=== PATIENT | female | born 1985 | race Caucasian/White ===

== ENCOUNTER 2016-08-14 14:21 | Emergency (ER) | payer OTHER ==
[~2016-08-14] VITALS: Ht 167.6 cm; Wt 72.0 kg
[~2016-08-14 14:21] MED LIST: IBUP400T20 PO; NAPR-576 PO; PERM5CRE TOP; PROC1TAB8 PO; TRIA.1%T TOP
[2016-08-14] MEDS ORDERED: ORPHENADRINE INJ 60 MG/2 ML AMP IM ONE (15:15)
[2016-08-14] MEDS ORDERED: KETOROLAC TROMETHAMINE 60 MG/2 ML (IM) VIAL IM ONE (15:15)
[2016-08-14 15:16] VITALS: BP 141/84; PULSE 89; RESP 20; TEMP 98.1; O2SAT 98
--- NOTE | 2016-08-14 15:16 | PD ---
HPI Chief Complaint: Back/ Neck Pain or Injury Time Seen by Provider: 15:11 Travel History International Travel<30 days: No Contact w/Intl Traveler<30days: No Traveled to known affect area: No History of Present Illness HPI 31-year-old female presents to the emergency Department with complaint of low back pain after slipping and falling on her but this morning in her shower. She says she hit the side of the bathtub and hyperextended her back over the edge. She denies hitting her head or loss of consciousness. Denies neck pain. Has been ambulatory since after the fall, but for only short distances. Took ibuprofen with no relief of pain. Pain is constant and aggravated with movement and palpation. No known relieving factors. Denies encopresis, incontinence, saddle anesthesias. Denies paresthesias, loss of sensation, decreased range of motion, decreased strength to bilateral lower extremities. Denies fever, chills, nausea, vomiting, abdominal pain. Last menstrual period end of July. Denies risk of . Denies contraception use. No known allergies. No other modifying factors or associated signs and symptoms. PFSH Past Medical History Bipolar Disorder: Yes Anxiety: Yes Diminished Hearing: No Musculoskeletal: Yes (CHRONIC NECK AND BACK PAIN FROM PREVIOUS INJURY) Psychiatric: Yes Immunizations Current: Yes ?: Not LMP: JUL 2016 Menopausal: No : 2 Para: 1 Miscarriage: 0 : 0 Tubal Ligation: Yes Past Surgical History Section: Yes (X2) Gynecologic Surgery: Yes (CONE OF CERVIX; ) Social History Alcohol Use: Yes (OCC) Tobacco Use: Yes (1/2 PPD) Substance Use: Yes (Per pt, pain pills. States is prescribed now. Has been taking Suboxone. ) Allergies-Medications (Allergen,Severity, Reaction): Coded Allergies: No Known Allergies (Verified , 08/14/16) Reported Meds & Prescriptions Reported Meds & Active Scripts Active Ibuprofen 800 Mg Tab 800 Mg PO Q6HR PRN Flexeril (Cyclobenzaprine HCl) 10 Mg Tab 10 Mg PO TID PRN Lortab (Hydrocodone-Acetaminophen) 5-325 Mg Tab 1-2 Tab PO Q4-6H PRN Review of Systems Except as stated in HPI: all other systems reviewed are Neg Physical Exam Narrative GENERAL: Well-nourished, well-developed patient, in no acute distress; tearful SKIN: Warm and dry. HEAD: Atraumatic. Normocephalic. EYES: Pupils equal and round. No scleral icterus. No injection or drainage. ENT: Mucosa pink and moist. Airway patent. NECK: Trachea midline. CARDIOVASCULAR: Regular rate. RESPIRATORY: No accessory muscle use. GASTROINTESTINAL: Abdomen soft, non-tender, nondistended. Positive bowel sounds. No hepato-splenomegaly, or palpable masses. No guarding. MUSCULOSKELETAL: Bilateral lower extremities supple and non-tense with 2+ pedal pulses and sensory intact; with full range of motion and 5/5 strength. Active dorsiflexion and extension of bilateral feet. Bilateral straight leg raise is positive for low back pain. Sitting up in bed at 90. No obvious deformities. No clubbing. No cyanosis. No edema. BACK: Midline point tenderness on palpation of the lumbar, thoracic, or cervical spine. No obvious deformities. NEUROLOGICAL: Awake and alert. Oriented 3. No obvious cranial nerve deficits. Motor grossly within normal limits. Normal speech. Moves all extremities. 5/5 strength to all extremities. Sensory intact. PSYCHIATRIC: Appropriate mood and affect; insight and judgment normal. Data Data Last Documented VS Vital Signs Date Time Temp Pulse Resp B/P Pulse Ox O2 Delivery O2 Flow Rate FiO2 08/14/16 15:16 98.1 89 20 141/[address] Lumb Spine W/O Contrast (08/14/16 ) Ed Urine Pregnancytest Poc (08/14/16 15:10) Ketorolac Inj (Toradol Inj) (08/14/16 15:15) Orphenadrine Inj (Norflex Inj) (08/14/16 15:15) MDM Medical Decision Making Medical Screen Exam Complete: Yes Emergency Medical Condition: Yes Medical Record Reviewed: Yes Differential Diagnosis Lumbar fracture, coccyx fracture, low back strain Narrative Course 31-year-old female with low back pain after his fall in her bathtub landing on her buttocks. Denies Hitting her head or loss of consciousness. Denies neck pain. Denies encopresis, incontinence, saddle anesthesias. Patient has midline tenderness on palpation of the lumbar spine. Urine ordered. Toradol and Norflex ordered. CT lumbar spine ordered. 1648: CT lumbar spine concludes Mild right paracentral disc protrusion at the L5 disc S1 level. No acute bony injury is seen. CT scan reviewed with Dr. hopkins and he agrees patient is stable for outpatient follow-up. Lortab, ibuprofen, Flexeril prescribed for home. Patient verbalizes understanding and agreement with treatment plan. Patient is medically cleared and stable for discharge. Discussed reasons to return to the emergency department. Instructed patient to follow up with primary care provider. Patient agrees with treatment plan. The patients vital signs are stable and the patient is stable for outpatient follow- up and treatment. Patient discharged home, stable and in no acute distress. Diagnosis Primary Impression: Low back strain Qualified Code: S39.012A - Low back strain, initial encounter Additional Impression: Contusion of lower back Qualified Code: S30.0XXA - Contusion of lower back, initial encounter Referrals: Primary Care Physician Departure Forms: Tests/Procedures, Work Release Enter return to work date: Aug 16, 2016 Additional Instructions: Tylenol or ibuprofen as directed and as needed for pain Flexeril as prescribed and as needed for muscle spasms Heating pad and/or ice to affected area to reduce pain Avoid aggravating activities; increase activity as tolerated Follow-up with primary care provider Return to emergency department immediately with worsening of symptoms Med/Other Pt SpecificInfo: Prescription(s) given Scripts Ibuprofen 800 Mg [id number] Mg PO Q6HR PRN (PAIN) #30 TAB Ref 0 Prov:Ana Daly 08/14/16 Cyclobenzaprine (Flexeril)10 Mg Tab10 Mg PO TID PRN (MUSCLE SPASM) #30 TAB Ref 0 Prov:Ana Daly 08/14/16 Hydrocodone-Acetaminophen (Lortab)5-325 Mg Tab1-2 Tab PO Q4-6H PRN (PAIN) #20 TAB Ref 0 Prov:Rivera Chaparro MD 08/14/16 Disposition: 01 DISCHARGE HOME Condition: Stable Ana Daly Aug 14, 2016 15:16
--- NOTE | 2016-08-14 16:43 | RADRPT ---
EXAM DATE/TIME: 08/14/2016 16:07 [facility] COMPARISON: No previous studies available for comparison. INDICATIONS : Slipped and fell in bath tub. RADIATION DOSE: 35.68 CTDIvol (mGy) MEDICAL HISTORY : None SURGICAL HISTORY : Tubal ligation. ENCOUNTER: Initial ACUITY: 1 day PAIN SCALE: 10/10 LOCATION: Lumbar TECHNIQUE: Volumetric scanning of the lumbar spine was performed. Multiplanar reconstructions in the sagittal, coronal and oblique axial planes were performed. Using automated exposure control and adjustment of the mA and/or kV according to patient size, radiation dose was kept as low as reasonably achievable t o obtain optimal diagnostic quality images. FINDINGS: VERTEBRAE: Normal vertebral body height. ALIGNMENT: No evidence of subluxation. T12-L1: The thecal sac has a normal diameter. No evidence of disc bulge or protrusion. The neural foramina are patent bilaterally. L1-L2: The thecal sac has a normal diameter. No evidence of disc bulge or protrusion. The neural foramina are patent bilaterally. L2-L3: The thecal sac has a normal diameter. No evidence of disc bulge or protrusion. The neural foramina are patent bilaterally. L3-L4: The thecal sac has a normal diameter. No evidence of disc bulge or protrusion. The neural foramina are patent bilaterally. L4-L5: The thecal sac has a normal diameter. No evidence of disc bulge or protrusion. The neural foramina are patent bilaterally. L5-S1: There is a mild right paracentral disc protrusion causing mild compression interest of the thecal sac . The thecal sac has a normal diameter. The neural foramina are patent bilaterally. CONCLUSION: Mild right paracentral disc protrusion at the L5 disc S1 level. No acute bony injury is seen. Primitivo Burk MD on August 14, 2016 at 16:38 Board Certified Radiologist. This report was verified electronically.
[2016-08-14] MEDS ORDERED: HYDR-3533 PO (17:09)
[2016-08-14] MEDS ORDERED: IBUP800T23 PO (17:14)
[2016-08-14] MEDS ORDERED: CYCL1TAB29 PO (17:14)
== END 2016-08-14 17:35 | disposition home or self-care (01) ==
LOC: NEPB 14:21
DX: F17.210 Nicotine dependence, cigarettes, uncomplicated (principal); S39.012A Strain of muscle, fascia and tendon of lower back, initial encounter; S30.0XXA Contusion of lower back and pelvis, initial encounter; W18.2XXA Fall in (into) shower or empty bathtub, initial encounter; Y93.E8 Activity, other personal hygiene; Y92.002 Bathroom of unspecified non-institutional (private) residence as the place of occurrence of the external cause
CPT/HCPCS: 72131; 84703; 96372; 99283; J1885; J2360

== ENCOUNTER 2017-05-30 14:06 | Emergency (ER) | payer OTHER ==
[~2017-05-30] VITALS: Ht 167.6 cm; Wt 64.0 kg
[~2017-05-30 14:06] MED LIST changes: +CYCL10TA PO; +HYDR-3533 PO; +IBUP1TAB7 PO; -IBUP400T20 PO; -NAPR-576 PO; -PERM5CRE TOP; -PROC1TAB8 PO; -TRIA.1%T TOP
[2017-05-30 14:07] VITALS: BP 119/71; PULSE 94; RESP 20; TEMP 99.8; O2SAT 97
[2017-05-30 15:15] LABS: BACTERIA, URINE MOD /hpf; BILIRUBIN, URINE NEG (NEG); BLOOD, URINE MOD (NEG); GLUCOSE,URINE NEG (NEG); KETONE, URINE NEG (NEG); MUCUS URINE MANY /lpf (OCC); NITRITE,URINE POS (NEG); PH, URINE 6.5 (5.0-8.5); RENAL EPITHELIAL CELLS 1 /hpf; SQUAMOUS EPITHELIAL CELL URINE 6 /hpf (0-5); TRANSITIONAL EPI CELLS, URINE 2 /hpf; URINE COLOR DARK-BROWN (YELLW/STRAW); URINE LEUKOCYTE ESTERASE LARGE (NEG); WHITE BLOOD CELL CLUMPS FEW
--- NOTE | 2017-05-30 16:18 | PD ---
HPI Chief Complaint: Complaint Time Seen by Provider: 16:17 Travel History International Travel<30 days: No Contact w/Intl Traveler<30days: No Traveled to known affect area: No History of Present Illness HPI 32-year-old female came to the emergency room with history of fever, chills, nausea and vomiting since last night. She is also having backache. Patient says that she's been trying to take care of a UTI that she felt coming by taking as a pill and cranberry juice. However when her symptoms got worse last night she decided to come to the emergency room today. She had slightly elevated temperature in triage. She looks to be in moderate distress. Patient says she usually is able to take care of her UTI at home. She vomited 4 times this morning the last one being at 9 AM. PFSH Past Medical History Narrative Medical List of her past medical, surgical, social and family history is reviewed from the nursing note. Bipolar Disorder: Yes Anxiety: Yes Diminished Hearing: No Musculoskeletal: Yes (CHRONIC NECK AND BACK PAIN FROM PREVIOUS INJURY) Psychiatric: Yes Immunizations Current: Yes ?: Not LMP: BTL Menopausal: No : 2 Para: 1 Miscarriage: 0 : 0 Tubal Ligation: Yes Past Surgical History Section: Yes (X2) Gynecologic Surgery: Yes (CONE OF CERVIX; ) Social History Alcohol Use: Yes (OCC) Tobacco Use: Yes (1/2 PPD) Substance Use: Yes (Per pt, pain pills. States is prescribed now. Has been taking Suboxone. ) Allergies-Medications (Allergen,Severity, Reaction): Coded Allergies: No Known Allergies (Verified , 08/14/16) Comments No known drug allergies. Reported Meds & Prescriptions Reported Meds & Active Scripts Active Tylenol (Acetaminophen) 325 Mg Tab 650 Mg PO Q6H PRN Bactrim DS (Sulfamethoxazole-Trimethoprim) 800-160 Mg Tab 1 Tab PO BID Ibuprofen 800 Mg Tab 800 Mg PO Q6HR PRN Flexeril (Cyclobenzaprine HCl) 10 Mg Tab 10 Mg PO TID PRN Lortab (Hydrocodone-Acetaminophen) 5-325 Mg Tab 1-2 Tab PO Q4-6H PRN Narrative Medication List of her home medications reviewed from the nursing note. Review of Systems Except as stated in HPI: all other systems reviewed are Neg General / Constitutional: Positive: Fever, Chills Physical Exam Narrative GENERAL: Awake, alert, moderate distress SKIN: Focused skin assessment warm/dry. HEAD: Atraumatic. Normocephalic. EYES: Pupils equal and round. No scleral icterus. No injection or drainage. ENT: No nasal bleeding or discharge. Mucous membranes pink and moist. NECK: Trachea midline. No JVD. CARDIOVASCULAR: Regular rate and rhythm. No murmur appreciated. RESPIRATORY: No accessory muscle use. Clear to auscultation. Breath sounds equal bilaterally. GASTROINTESTINAL: Abdomen soft, non-tender, nondistended. Hepatic and splenic margins not palpable. CVA tenderness. MUSCULOSKELETAL: No obvious deformities. No clubbing. No cyanosis. No edema. NEUROLOGICAL: Awake and alert. No obvious cranial nerve deficits. Motor grossly within normal limits. Normal speech. PSYCHIATRIC: Appropriate mood and affect; insight and judgment normal. Data Data Last Documented VS Vital Signs Date Time Temp Pulse Resp B/P (MAP) Pulse Ox O2 Delivery O2 Flow Rate FiO2 05/30/17 20:05 80 16 129/57 (81) 98 Nasal Cannula 05/30/17 14:07 99.8 Orders Orders Urinalysis - C+S If Indicated (05/30/17 14:39) Urine Culture (05/30/17 14:46) Sodium Chlor 0.9% 1000 Ml Inj (Ns 1000 M (05/30/17 16:30) Ceftriaxone Inj (Rocephin Inj) (05/30/17 16:30) Complete Blood Count With Diff (05/30/17 16:19) Basic Metabolic Panel (Bmp) (05/30/17 16:19) Blood Culture (05/30/17 16:19) Ondansetron Inj (Zofran Inj) (05/30/17 16:30) Sodium Chlor 0.9% 1000 Ml Inj (Ns 1000 M (05/30/17 16:30) Ibuprofen (Motrin) (05/30/17 16:30) Morphine Inj (Morphine Inj) (05/30/17 17:45) Ed Urine Pregnancytest Poc (05/30/17 17:41) Ct Abd/Pel W/O Iv Contrast (05/30/17 ) Ed Discharge Order (05/30/17 19:49) Labs Laboratory Tests Test 05/30/17 14:46 05/30/17 16:35 Urine Color DARK-BROWN Urine Turbidity CLOUDY Urine pH 6.5 Urine Specific [place] 1.014 Urine Protein 100 mg/dL Urine Glucose (UA) NEG mg/dL Urine Ketones NEG mg/dL Urine Occult Blood MOD Urine Nitrite POS Urine Bilirubin NEG Urine Urobilinogen 8.0 MG/DL Urine Leukocyte Esterase LARGE Urine RBC /hpf Urine WBC /hpf Urine WBC Clumps FEW Urine Squamous Epithelial Cells 6 /hpf Urine Transitional Epithelial Cells 2 /hpf Urine Renal Epithelial Cells 1 /hpf Urine Bacteria MOD /hpf Urine Mucus MANY /lpf Microscopic Urinalysis Comment CULTURE INDICATED White Blood Count 12.2 TH/MM3 Red Blood Count 4.60 MIL/MM3 Hemoglobin 13.2 GM/DL Hematocrit 39.2 % Mean Corpuscular Volume 85.2 FL Mean Corpuscular Hemoglobin 28.6 PG Mean Corpuscular Hemoglobin Concent 33.6 % Red Cell Distribution Width 15.1 % Platelet Count 288 TH/MM3 Mean Platelet Volume 7.9 FL Neutrophils (%) (Auto) 78.3 % Lymphocytes (%) (Auto) 11.9 % Monocytes (%) (Auto) 8.2 % Eosinophils (%) (Auto) 1.3 % Basophils (%) (Auto) 0.3 % Neutrophils # (Auto) 9.5 TH/MM3 Lymphocytes # (Auto) 1.5 TH/MM3 Monocytes # (Auto) 1.0 TH/MM3 Eosinophils # (Auto) 0.2 TH/MM3 Basophils # (Auto) 0.0 TH/MM3 CBC Comment DIFF FINAL Differential Comment Blood Urea Nitrogen 6 MG/DL Creatinine 0.61 MG/DL Random Glucose 76 MG/DL Calcium Level 8.9 MG/DL Sodium Level 141 MEQ/L Potassium Level 3.6 MEQ/L Chloride Level 108 MEQ/L Carbon Dioxide Level 23.9 MEQ/L Anion Gap 9 MEQ/L Estimat Glomerular Filtration Rate 112 ML/MIN [facility] Medical Decision Making Medical Screen Exam Complete: Yes Emergency Medical Condition: Yes Medical Record Reviewed: Yes Differential Diagnosis Pyelonephritis, dehydration Narrative Course 5:32 PM patient is getting 2 L of IV fluid bolus and IV Rocephin. I've ordered blood test. UA is grossly positive for UTI. Case has been signed over to the oncoming ER physician. Procedures EKG Prior to Arrival: No Scripts Acetaminophen (Tylenol) 325 Mg Tab 650 MG PO Q6H Y for PAIN SCALE 1 TO 4, #20 TAB 0 Refills Prov: Nataliia Castillo DO 05/30/17 Sulfamethoxazole-Trimethoprim (Bactrim DS) 800-160 Mg Tab 1 TAB PO BID for Infection, #20 TAB 0 Refills Prov: Nataliia Castillo DO 05/30/17 Sophie Alex MD May 30, 2017 16:18
[2017-05-30] MEDS ORDERED: SODIUM CHLOR 0.9% 1000 ML INJ 1,000 ML IV ONE ×2 (16:30)
[2017-05-30] MEDS ORDERED: IBUPROFEN 600 MG TAB PO ONE (16:30)
[2017-05-30] MEDS ORDERED: ONDANSETRON HCL 4 MG/2 ML VIAL IV PUSH ONE (16:30)
[2017-05-30] MEDS ORDERED: cefTRIAXone INJ 1,000 MG in SODIUM CHLORIDE 0.9% INJ 100 ML IV ONE (16:30)
--- NOTE | 2017-05-30 17:37 | PD ---
Physical Exam Narrative Received sign out from previous team to follow up labs and reevaluate patient. 32yo F with no PMH presents to the ED with dysuria, urinary frequency for about 1 week. Said she tried over the counter medications and cranberry juice but did not work. Pt now has chills and nausea and vomiting today. Also with left upper abdominal pain radiating to left back since yesterday. Pt evaluated after ibuprofen and still is in a lot of pain and crying. Pt no longer nauseous after zofran. Pt given NS IVF and ceftriaxone by previous team. Urine negative. Labs reviewed, mild leukocytosis at 12.2. BMP unremarkable. UA showed large leukocyte. Positive nitrite. Pt already given ceftriaxone. CT a/p showed no stone, mass or hydronephrosis. Minimal free pelvic fluid. Pt given morphine and now pain has resolved. Pt tolerating PO and wants to go home. She is well appearing so will try outpatient treatment first. Return precautions given. Data Data Last Documented VS Vital Signs Date Time Temp Pulse Resp B/P (MAP) Pulse Ox O2 Delivery O2 Flow Rate FiO2 05/30/17 20:05 80 16 129/57 (81) 98 Nasal Cannula 05/30/17 14:07 99.8 Orders Orders Urinalysis - C+S If Indicated (05/30/17 14:39) Urine Culture (05/30/17 14:46) Sodium Chlor 0.9% 1000 Ml Inj (Ns 1000 M (05/30/17 16:30) Ceftriaxone Inj (Rocephin Inj) (05/30/17 16:30) Complete Blood Count With Diff (05/30/17 16:19) Basic Metabolic Panel (Bmp) (05/30/17 16:19) Blood Culture (05/30/17 16:19) Ondansetron Inj (Zofran Inj) (05/30/17 16:30) Sodium Chlor 0.9% 1000 Ml Inj (Ns 1000 M (05/30/17 16:30) Ibuprofen (Motrin) (05/30/17 16:30) Morphine Inj (Morphine Inj) (05/30/17 17:45) Ed Urine Pregnancytest Poc (05/30/17 17:41) Ct Abd/Pel W/O Iv Contrast (05/30/17 ) Ed Discharge Order (05/30/17 19:49) Labs Laboratory Tests Test 05/30/17 14:46 05/30/17 16:35 Urine Color DARK-BROWN Urine Turbidity CLOUDY Urine pH 6.5 Urine Specific [place] 1.014 Urine Protein 100 mg/dL Urine Glucose (UA) NEG mg/dL Urine Ketones NEG mg/dL Urine Occult Blood MOD Urine Nitrite POS Urine Bilirubin NEG Urine Urobilinogen 8.0 MG/DL Urine Leukocyte Esterase LARGE Urine RBC /hpf Urine WBC /hpf Urine WBC Clumps FEW Urine Squamous Epithelial Cells 6 /hpf Urine Transitional Epithelial Cells 2 /hpf Urine Renal Epithelial Cells 1 /hpf Urine Bacteria MOD /hpf Urine Mucus MANY /lpf Microscopic Urinalysis Comment CULTURE INDICATED White Blood Count 12.2 TH/MM3 Red Blood Count 4.60 MIL/MM3 Hemoglobin 13.2 GM/DL Hematocrit 39.2 % Mean Corpuscular Volume 85.2 FL Mean Corpuscular Hemoglobin 28.6 PG Mean Corpuscular Hemoglobin Concent 33.6 % Red Cell Distribution Width 15.1 % Platelet Count 288 TH/MM3 Mean Platelet Volume 7.9 FL Neutrophils (%) (Auto) 78.3 % Lymphocytes (%) (Auto) 11.9 % Monocytes (%) (Auto) 8.2 % Eosinophils (%) (Auto) 1.3 % Basophils (%) (Auto) 0.3 % Neutrophils # (Auto) 9.5 TH/MM3 Lymphocytes # (Auto) 1.5 TH/MM3 Monocytes # (Auto) 1.0 TH/MM3 Eosinophils # (Auto) 0.2 TH/MM3 Basophils # (Auto) 0.0 TH/MM3 CBC Comment DIFF FINAL Differential Comment Blood Urea Nitrogen 6 MG/DL Creatinine 0.61 MG/DL Random Glucose 76 MG/DL Calcium Level 8.9 MG/DL Sodium Level 141 MEQ/L Potassium Level 3.6 MEQ/L Chloride Level 108 MEQ/L Carbon Dioxide Level 23.9 MEQ/L Anion Gap 9 MEQ/L Estimat Glomerular Filtration Rate 112 ML/MIN MDM Supervised Visit with MARILEE: No Diagnosis Primary Impression: Pyelonephritis Patient Instructions: General Instructions Departure Forms: Tests/Procedures Additional Instruction: Please follow up with your primary care physician in 3-7 days. Return to the ED if symptoms worsen. Med/Other Pt SpecificInfo: Prescription(s) given Scripts Acetaminophen (Tylenol) 325 Mg Tab 650 MG PO Q6H Y for PAIN SCALE 1 TO 4, #20 TAB 0 Refills Prov: Nataliia Castillo DO 05/30/17 Sulfamethoxazole-Trimethoprim (Bactrim DS) 800-160 Mg Tab 1 TAB PO BID for Infection, #20 TAB 0 Refills Prov: Nataliia Castillo DO 05/30/17 Disposition: 01 DISCHARGE HOME Condition: Stable Nataliia Castillo DO May 30, 2017 17:37
[2017-05-30] MEDS ORDERED: MORPHINE SULFATE 2 MG/ML INJ IV PUSH ONE (17:45)
[2017-05-30 17:46] LABS: AUTOMATED NEUTROPHIL # 9.5 TH/MM3 (1.8-7.7); BASOPHIL % 0.3 % (0.0-2.0); EOSINOPHIL # 0.2 TH/MM3 (0-0.4); EOSINOPHIL % 1.3 % (0.0-4.0); HEMATOCRIT 39.2 % (35.0-46.0); HEMOGLOBIN 13.2 GM/DL (11.6-15.3); LYMPH % 11.9 % (9.0-44.0); LYMPHOCYTE # 1.5 TH/MM3 (1.0-4.8); MEAN CELL VOLUME 85.2 FL (80.0-100.0); MEAN CORPUSCULAR HEMOGLOBIN 28.6 PG (27.0-34.0); MEAN CORPUSCULAR HGB CONC 33.6 % (32.0-36.0); MEAN PLATELET VOLUME 7.9 FL (7.0-11.0); MONO % 8.2 % (0.0-8.0); NEUT % 78.3 % (16.0-70.0); PLATELET COUNT 288 TH/MM3 (150-450); RED CELL DISTRIBUTION WIDTH 15.1 % (11.6-17.2); WHITE BLOOD COUNT 12.2 TH/MM3 (4.0-11.0)
[2017-05-30 18:04] LABS: BICARBONATE 23.9 MEQ/L (21.0-32.0); CALCIUM 8.9 MG/DL (8.5-10.1); CREATININE 0.61 MG/DL (0.50-1.00)
[2017-05-30 18:41] VITALS: RESP 16
--- NOTE | 2017-05-30 19:12 | RADRPT ---
EXAM DATE/TIME: 05/30/2017 18:50 [facility] COMPARISON: No previous studies available for comparison. INDICATIONS : Left upper quadrant pain with dysuria and nausea. ORAL CONTRAST: No oral contrast ingested. RADIATION DOSE: 6.64 CTDIvol (mGy) MEDICAL HISTORY : None SURGICAL HISTORY : section. Tubal ligation. ENCOUNTER: Initial ACUITY: 1 day PAIN SCALE: 9/10 LOCATION: Left upper quadrant TECHNIQUE: Volumetric scanning of the abdomen and pelvis was performed. Using automated exposure control and ad justment of the mA and/or kV according to patient size, radiation dose was kept as low as reasonably achievable to obtain optimal diagnostic quality images. DICOM format image data is available electro nically for review and comparison. FINDINGS: LOWER LUNGS: The visualized lower lungs are clear. LIVER: Homogeneous density without lesion. There is no dilation of the biliary tree. No calcified gallston es. SPLEEN: Normal size without lesion. PANCREAS: Within normal limits. KIDNEYS: Normal in size and shape. There is no mass, stone, or hydronephrosis. ADRENAL GLANDS: Within normal limits. VASCULAR: There is no aortic aneurysm. BOWEL/MESENTERY: The stomach, small bowel, and colon demonstrate no acute abnormality. There is no free intraperitone al air or fluid. ABDOMINAL WALL: Within normal limits. RETROPERITONEUM: There is no lymphadenopathy. BLADDER: No wall thickening or mass. REPRODUCTIVE: Minimal free pelvic fluid. No evidence of mass. INGUINAL: There is no lymphadenopathy or hernia. MUSCULOSKELETAL: Within normal limits for patient age. CONCLUSION: Minimal free pelvic fluid. Primitivo Arreola MD on May 30, 2017 at 19:08 Board Certified Radiologist. This report was verified electronically.
[2017-05-30] MEDS ORDERED: BACT800T5 PO (19:43)
[2017-05-30] MEDS ORDERED: TYLE325T PO (19:48)
[2017-05-30 20:05] VITALS: BP 129/57
== END 2017-05-30 20:26 | disposition home or self-care (01) ==
LOC: NEPD 14:06
DX: N12 Tubulo-interstitial nephritis, not specified as acute or chronic (principal); R50.9 Fever, unspecified; R30.0 Dysuria; B95.7 Other staphylococcus as the cause of diseases classified elsewhere; Z72.0 Tobacco use
CPT/HCPCS: 74176; 80048; 81001; 84703; 85025; 87040; 87086; 96365; 96375; 99284; J0696; J2270; J2405; J7030

== ENCOUNTER 2017-08-18 16:48 | Emergency (ER) | payer OTHER ==
[~2017-08-18] VITALS: Ht 172.7 cm; Wt 68.0 kg
[~2017-08-18 16:48] MED LIST changes: +BACT800T5 PO; +TYLE325T PO
[2017-08-18 16:56] VITALS: BP 102/60; PULSE 87; RESP 16; TEMP 98.4; O2SAT 95
--- NOTE | 2017-08-18 18:05 | PD ---
HPI Chief Complaint: Eye Problems/Injury Time Seen by Provider: 17:48 Travel History International Travel<30 days: No Contact w/Intl Traveler<30days: No Traveled to known affect area: No History of Present Illness HPI 32-year-old female presents emergency department for evaluation of left periorbital edema. Patient got bitten by an insect on her left eyebrow yesterday. She states it began to swell but when she woke up this morning the area around her entire eye was swollen. It is difficult to open it due to swelling. Denies any fever chills. No visual disturbances other than difficulty opening her eyes. Patient denies IV drug use within the last 6 months. Denies any other symptoms at this time. PFSH Past Medical History Bipolar Disorder: Yes Anxiety: Yes Diminished Hearing: No Musculoskeletal: Yes (CHRONIC NECK AND BACK PAIN FROM PREVIOUS INJURY) Psychiatric: Yes Immunizations Current: Yes ?: Not Menopausal: No : 2 Para: 1 Miscarriage: 0 : 0 Tubal Ligation: Yes Past Surgical History Section: Yes (X2) Gynecologic Surgery: Yes (CONE OF CERVIX; ) Social History Alcohol Use: Yes (OCC) Tobacco Use: Yes (1/2 PPD) Substance Use: Yes (Per pt, pain pills. States is prescribed now. Has been taking Suboxone. ) Allergies-Medications (Allergen,Severity, Reaction): Coded Allergies: No Known Allergies (Verified Adverse Reaction, Unknown, 08/18/17) Reported Meds & Prescriptions Reported Meds & Active Scripts Active Keflex (Cephalexin) 500 Mg Cap 500 Mg PO Q6H 5 Days Bactrim DS (Sulfamethoxazole-Trimethoprim) 800-160 Mg Tab 1 Tab PO BID Review of Systems Except as stated in HPI: all other systems reviewed are Neg Physical Exam Narrative GENERAL: Well-nourished, well-developed female patient in no acute distress. SKIN: Focused skin assessment warm/dry. HEAD: Normocephalic. There is no tenderness elicited to palpation over the maxillary or frontal sinuses. EYES: No scleral icterus. No injection or drainage. EOMI. PERRLA. The left eye is with moderate periorbital edema stemming from what appears to be a scabbed lesion in the eyebrow. NECK: Supple, trachea midline. No JVD or lymphadenopathy. CARDIOVASCULAR: Regular rate and rhythm without murmurs, gallops, or rubs. RESPIRATORY: Breath sounds equal bilaterally. No accessory muscle use. MUSCULOSKELETAL: No cyanosis, or edema. BACK: Nontender without obvious deformity. No CVA tenderness. Data Data Last Documented VS Vital Signs Date Time Temp Pulse Resp B/P (MAP) Pulse Ox O2 Delivery O2 Flow Rate FiO2 08/18/17 18:55 08/18/17 18:08 91 16 98 08/18/17 16:56 98.4 Orders Orders Dexamethasone Inj (Decadron Inj) (08/18/17 18:15) Ed Discharge Order (08/18/17 18:29) [facility] Medical Decision Making Medical Screen Exam Complete: Yes Emergency Medical Condition: Yes Medical Record Reviewed: Yes Differential Diagnosis Local reaction versus cellulitis superficial versus preseptal Narrative Course 32-year-old female presents emergency department for evaluation of left eye swelling following an insect bite that occurred yesterday. The edema is superficial and involving the periorbital space however no tenderness elicited to palpation of the sinuses. EOMI. I discussed the patient my attending physician. She is given a dose of Decadron here. She will be started on oral antibiotics outpatient. She is encouraged to follow-up with primary care provider and return immediately with any acute worsening symptoms. Diagnosis Primary Impression: Periorbital edema of left eye Referrals: Primary Care Physician Patient Instructions: General Instructions, Insect Bite or Sting (ED) Departure Forms: Tests/Procedures, Work Release Enter return to work date: Aug 21, 2017 Additional Instructions: Cool compresses to the affected area Benadryl as directed on the package as needed to help with swelling Avoid sleeping on the affected side Follow up with a primary care provider Start antibiotics today and take until they are all gone Return to ED with acute worsening of symptoms Med/Other Pt SpecificInfo: Prescription(s) given Scripts Cephalexin (Keflex) 500 Mg Cap 500 MG PO Q6H for Infection for 5 Days, #20 CAP 0 Refills Prov: Dianna Howell 08/18/17 Sulfamethoxazole-Trimethoprim (Bactrim DS) 800-160 Mg Tab 1 TAB PO BID for Infection, #20 TAB 0 Refills Prov: Dianna Howell 08/18/17 Disposition: 01 DISCHARGE HOME Condition: Stable Dianna Howell Aug 18, 2017 18:05
[2017-08-18 18:08] VITALS: BP 113/59; PULSE 91; RESP 16; O2SAT 98
[2017-08-18] MEDS ORDERED: DEXAMETHASONE SOD PHOS 20 MG/5 ML VIAL IM ONE (18:15)
[2017-08-18] MEDS ORDERED: BACT800T5 PO (18:31)
[2017-08-18] MEDS ORDERED: CEPH-460 PO (18:31)
== END 2017-08-18 19:03 | disposition home or self-care (01) ==
LOC: NEPC 16:48
DX: H05.222 Edema of left orbit (principal); F17.200 Nicotine dependence, unspecified, uncomplicated
CPT/HCPCS: 96372; 99283; J1100

== ENCOUNTER 2017-10-15 10:40 | Emergency (ER) | payer OTHER ==
[~2017-10-15] VITALS: Ht 167.6 cm; Wt 59.0 kg
[~2017-10-15 10:40] MED LIST changes: +CEPH-460 PO; -CYCL10TA PO; -HYDR-3533 PO; -IBUP1TAB7 PO; -TYLE325T PO
[2017-10-15 10:57] VITALS: BP 104/57; PULSE 65; RESP 22; TEMP 98.3; O2SAT 97
--- NOTE | 2017-10-15 11:29 | PD ---
HPI Chief Complaint: Abdominal Pain Time Seen by Provider: 11:18 Travel History International Travel<30 days: No Contact w/Intl Traveler<30days: No Traveled to known affect area: No History of Present Illness HPI 32-year-old female came to the emergency room with history of lower abdominal pain. Patient has been constantly moaning and trying to put her finger in and gag and vomit. It is very difficult to get any history out of her in between these acts. Her young son was probably 4 years old is in the room with her and she has been constantly screaming at him. She looks agitated and anxious. Says she has been vomiting as well. However after gagging when she brings out any secretion it is mostly saliva that is clear appearing. Patient has been in the emergency room multiple times in the past for various complaints. She has history of drug abuse and has been seen in the emergency room for overdose as well. Vital signs are stable. Once again very difficult to get complicated and detailed history. PFSH Past Medical History Narrative Medical List of her past medical, surgical, social and family history is reviewed from the nursing note. Bipolar Disorder: Yes Anxiety: Yes Depression: Yes Diminished Hearing: No Musculoskeletal: Yes (CHRONIC NECK AND BACK PAIN FROM PREVIOUS INJURY) Psychiatric: Yes Immunizations Current: Yes ?: Not LMP: 10/07/17 Menopausal: No : 2 Para: 2 Miscarriage: 0 : 0 Tubal Ligation: Yes Past Surgical History Section: Yes (X2) Gynecologic Surgery: Yes (CONE OF CERVIX; ) Social History Alcohol Use: Yes (OCC) Tobacco Use: Yes (1/2 PPD) Substance Use: No Allergies-Medications (Allergen,Severity, Reaction): Coded Allergies: No Known Allergies (Verified Adverse Reaction, Unknown, 08/18/17) Comments No known drug allergies. Reported Meds & Prescriptions Reported Meds & Active Scripts Active Flagyl (Metronidazole) 250 Mg Tab 250 Mg PO TID 7 Days Ibuprofen 600 Mg Tab 600 Mg PO Q6H PRN Narrative Medication List of her home medications reviewed from the nursing note. Review of Systems Except as stated in HPI: all other systems reviewed are Neg Gastrointestinal: Positive: Nausea, Vomiting, Abdominal Pain Physical Exam Narrative GENERAL: Awake, alert, agitated, anxious, disheveled SKIN: Focused skin assessment warm/dry. Disheveled and poor skin hygiene HEAD: Atraumatic. Normocephalic. EYES: Pupils equal and round. No scleral icterus. No injection or drainage. ENT: No nasal bleeding or discharge. Mucous membranes pink and moist. NECK: Trachea midline. No JVD. CARDIOVASCULAR: Regular rate and rhythm. No murmur appreciated. RESPIRATORY: No accessory muscle use. Clear to auscultation. Breath sounds equal bilaterally. GASTROINTESTINAL: Abdomen soft, non-tender, nondistended. Hepatic and splenic margins not palpable. MUSCULOSKELETAL: No obvious deformities. No clubbing. No cyanosis. No edema. NEUROLOGICAL: Awake and alert. No obvious cranial nerve deficits. Motor grossly within normal limits. Normal speech. PSYCHIATRIC: Appropriate mood and affect; insight and judgment normal. Data Data Last Documented VS Orders Orders Complete Blood Count With Diff (10/15/17 11:) Comprehensive Metabolic Panel (10/15/17 11:30) Lipase (10/15/17 11:30) Urinalysis - C+S If Indicated (10/15/17 11:30) Iv Access Insert/Monitor (10/15/17 11:30) Ecg Monitoring (10/15/17 11:30) Oximetry (10/15/17 11:30) Sodium Chlor 0.9% 1000 Ml Inj (Ns 1000 M (10/15/17 11:30) Sodium Chloride 0.9% Flush (Ns Flush) (10/15/17 11:30) Metoclopramide Inj (Reglan Inj) (10/15/17 11:30) Ed Urine Pregnancytest Poc (10/15/17 11:30) Drug Screen, Random Urine (10/15/17 11:30) Ketorolac Inj (Toradol Inj) (10/15/17 12:30) Gc And Chlamydia Pcr (10/15/17 12:44) Potassium Chloride Eff (K-Lyte Cl Eff) (10/15/17 13:15) Sodium Chlor 0.9% 1000 Ml Inj (Ns 1000 M (10/15/17 13:30) Metronidazole (Flagyl) (10/15/17 13:30) Azithromycin Powd Pack (Zithromax Powd P (10/15/17 13:30) Ceftriaxone Inj (Rocephin Inj) (10/15/17 13:30) Lidocaine 1% Inj (50 Ml) (Xylocaine 1% I (10/15/17 13:30) Ed Discharge Order (10/15/17 13:25) Labs Laboratory Tests Test 10/15/17 11:58 10/15/17 12:31 White Blood Count 10.0 TH/MM3 Red Blood Count 4.81 MIL/MM3 Hemoglobin 13.5 GM/DL Hematocrit 40.4 % Mean Corpuscular Volume 84.0 FL Mean Corpuscular Hemoglobin 28.1 PG Mean Corpuscular Hemoglobin Concent 33.5 % Red Cell Distribution Width 15.9 % Platelet Count 276 TH/MM3 Mean Platelet Volume 8.1 FL Neutrophils (%) (Auto) 87.1 % Lymphocytes (%) (Auto) 8.1 % Monocytes (%) (Auto) 3.4 % Eosinophils (%) (Auto) 0.8 % Basophils (%) (Auto) 0.6 % Neutrophils # (Auto) 8.8 TH/MM3 Lymphocytes # (Auto) 0.8 TH/MM3 Monocytes # (Auto) 0.3 TH/MM3 Eosinophils # (Auto) 0.1 TH/MM3 Basophils # (Auto) 0.1 TH/MM3 CBC Comment DIFF FINAL Differential Comment Blood Urea Nitrogen 5 MG/DL Creatinine 0.79 MG/DL Random Glucose 88 MG/DL Total Protein 7.0 GM/DL Albumin 3.9 GM/DL Calcium Level 8.9 MG/DL Alkaline Phosphatase 62 U/L Aspartate Amino Transf (AST/SGOT) 24 U/L Alanine Aminotransferase (ALT/SGPT) 18 U/L Total Bilirubin 0.4 MG/DL Sodium Level 143 MEQ/L Potassium Level 3.3 MEQ/L Chloride Level 108 MEQ/L Carbon Dioxide Level 25.6 MEQ/L Anion Gap 9 MEQ/L Estimat Glomerular Filtration Rate 83 ML/MIN Lipase 80 U/L Urine Color YELLOW Urine Turbidity CLEAR Urine pH 7.5 Urine Specific [place] 1.013 Urine Protein NEG mg/dL Urine Glucose (UA) NEG mg/dL Urine Ketones 40 mg/dL Urine Occult Blood NEG Urine Nitrite NEG Urine Bilirubin NEG Urine Urobilinogen LESS THAN 2.0 MG/DL Urine Leukocyte Esterase NEG Urine RBC 1 /hpf Urine WBC 1 /hpf Urine Squamous Epithelial Cells 1 /hpf Urine Bacteria RARE /hpf Microscopic Urinalysis Comment CULT NOT INDICATED Urine Opiates Screen POS Urine Barbiturates Screen NEG Urine Amphetamines Screen NEG Urine Benzodiazepines Screen NEG Urine Cocaine Screen NEG Urine Cannabinoids Screen POS Chlamydia trachomatis DNA (PCR) NOT DETECTED Neisseria gonorrhoeae DNA (PCR) NOT DETECTED MDM Medical Decision Making Medical Screen Exam Complete: Yes Emergency Medical Condition: Yes Medical Record Reviewed: Yes Differential Diagnosis UTI, STD Narrative Course 12:44 PM CBC and chemistry is back and within normal limits. Awaiting for the UA. This patient is so agitated and jumpy I have ordered GC and Chlamydia of the urine. 1:25 PM blood test results are back and potassium is slightly low. UA is negative except for some ketones. Patient will get treated prophylactically for STD at this point. Urine drug screen was positive for opiates and marijuana. Procedures EKG Prior to Arrival: No Diagnosis Primary Impression: Opiate abuse, episodic Additional Impressions: STD (female) Pelvic pain Referrals: Primary Care Physician Additional Instructions: Take the medication as per the prescription direction. Do not drink alcohol with the medication as it would give a bad reaction. Follow-up with a [employer] [employer] [facility] if possible. Return to the ER if condition worsens any other new concerns. Med/Other Pt SpecificInfo: Prescription(s) given Scripts Metronidazole (Flagyl) 250 Mg Tab 250 MG PO TID for Infection for 7 Days, TAB 0 Refills Prov: Sophie Alex MD 10/15/17 Ibuprofen (Ibuprofen) 600 Mg Tab 600 MG PO Q6H Y for Pain/Inflammation, #40 TAB 0 Refills Prov: Sophie Alex MD 10/15/17 Disposition: 01 DISCHARGE HOME Condition: Stable Sophie Alex MD October 15, 2017 11:29
[2017-10-15] MEDS ORDERED: SODIUM CHLOR 0.9% 1000 ML INJ 1,000 ML IV SCH (11:30)
[2017-10-15] MEDS ORDERED: METOCLOPRAMIDE HCL 10 MG/2 ML VIAL IV PUSH ONE (11:30)
[2017-10-15] MEDS ORDERED: SODIUM CHLORIDE 0.9% FLUSH 10 ML FLUSH IV FLUSH PRN (11:30)
[2017-10-15 12:07] VITALS: O2SAT 99
[2017-10-15 12:21] LABS: AUTOMATED NEUTROPHIL # 8.8 TH/MM3 (1.8-7.7); BASOPHIL # 0.1 TH/MM3 (0-0.2); BASOPHIL % 0.6 % (0.0-2.0); EOSINOPHIL # 0.1 TH/MM3 (0-0.4); EOSINOPHIL % 0.8 % (0.0-4.0); HEMATOCRIT 40.4 % (35.0-46.0); HEMOGLOBIN 13.5 GM/DL (11.6-15.3); LYMPH % 8.1 % (9.0-44.0); LYMPHOCYTE # 0.8 TH/MM3 (1.0-4.8); MEAN CORPUSCULAR HEMOGLOBIN 28.1 PG (27.0-34.0); MEAN CORPUSCULAR HGB CONC 33.5 % (32.0-36.0); MEAN PLATELET VOLUME 8.1 FL (7.0-11.0); MONO % 3.4 % (0.0-8.0); MONOCYTE # 0.3 TH/MM3 (0-0.9); NEUT % 87.1 % (16.0-70.0); PLATELET COUNT 276 TH/MM3 (150-450); RED BLOOD COUNT 4.81 MIL/MM3 (4.00-5.30); RED CELL DISTRIBUTION WIDTH 15.9 % (11.6-17.2)
[2017-10-15] MEDS ORDERED: KETOROLAC TROMETHAMINE 30 MG/ML (IVP) VIAL IV PUSH ONE (12:30)
[2017-10-15 12:38] LABS: ALKALINE PHOSPHATASE 62 U/L (45-117); ALT (GPT) 18 U/L (10-53); TOTAL BILIRUBIN ADULT 0.4 MG/DL (0.2-1.0)
[2017-10-15 12:53] LABS: ALBUMIN 3.9 GM/DL (3.4-5.0); AST (GOT) 24 U/L (15-37); BICARBONATE 25.6 MEQ/L (21.0-32.0); BLOOD UREA NITROGEN 5 MG/DL (7-18); CALCIUM 8.9 MG/DL (8.5-10.1); CHLORIDE 108 MEQ/L (98-107); CREATININE 0.79 MG/DL (0.50-1.00); GLOMERULAR FILTRATION RATE 83 ML/MIN (>89); GLUCOSE,RANDOM 88 MG/DL (74-106); SODIUM (NA) 143 MEQ/L (136-145)
[2017-10-15 13:10] LABS: BACTERIA, URINE RARE /hpf; BILIRUBIN, URINE NEG (NEG); BLOOD, URINE NEG (NEG); GLUCOSE,URINE NEG (NEG); KETONE, URINE 40 mg/dL (NEG); NITRITE,URINE NEG (NEG); PH, URINE 7.5 (5.0-8.5); SQUAMOUS EPITHELIAL CELL URINE 1 /hpf (0-5); URINE COLOR YELLOW (YELLW/STRAW); URINE LEUKOCYTE ESTERASE NEG (NEG)
[2017-10-15] MEDS ORDERED: POTASSIUM CHLORIDE 25 MEQ EFFERVESCENT TAB PO ONE (13:15)
[2017-10-15] MEDS ORDERED: METR250 PO (13:28)
[2017-10-15] MEDS ORDERED: IBUP-232 PO (13:28)
[2017-10-15] MEDS ORDERED: LIDOCAINE HCL 1% 50 ML VIAL IM ONE (13:30)
[2017-10-15] MEDS ORDERED: cefTRIAXone 250 MG VIAL IM ONE (13:30)
[2017-10-15] MEDS ORDERED: SODIUM CHLOR 0.9% 1000 ML INJ 1,000 ML IV ONE (13:30)
[2017-10-15] MEDS ORDERED: metroNIDAZOLE 500 MG TAB PO ONE (13:30)
[2017-10-15] MEDS ORDERED: AZITHROMYCIN PWD FOR SUSP 1 GM PACKET PO ONE (13:30)
[2017-10-15 13:38] VITALS: RESP 18
== END 2017-10-15 14:34 | disposition home or self-care (01) ==
LOC: NEPD 10:40
DX: F11.10 Opioid abuse, uncomplicated (principal); A64 Unspecified sexually transmitted disease; F17.200 Nicotine dependence, unspecified, uncomplicated
CPT/HCPCS: 80053; 80307; 81001; 83690; 84703; 85025; 87491; 87591; 96361; 96372; 96374; 96375; 99284; J0696; J1885; J2765; J7030